=== PATIENT | female | born 1965 | race Caucasian/White ===

== ENCOUNTER 2016-10-17 17:17 | Emergency (ER) | payer OTHER, BC ==
[2016-10-17] MEDS ORDERED: TETANUS/DIPHTHERIA/PERTUSSIS 0.5 ML SYRINGE IM ONE ×2 (17:27→18:02)
--- NOTE | 2016-10-17 17:28 | ED Physician Documentation ---
PD HPI UPPER EXT INJURY - Stated complaint Stated Complaint: L THUMB LAC - Chief complaint Chief Complaint: Ext Problem - History obtained from History obtained from: Patient - History of Present Illness Location: Other (Not up-to-date on tetanus, got cut on the left thumb by a broken item at work just prior to arrival. No other injuries.) Review of Systems Constitutional: reports: Reviewed and negative Throat: reports: Reviewed and negative Cardiac: reports: Reviewed and negative PD PAST MEDICAL HISTORY - Present Medications Home Medications: Ambulatory Orders Medication Instructions Recorded Confirmed No Known Home Medications [No 12/25/15 12/25/15 Known Home Medications] - Allergies Allergies/Adverse Reactions: Allergies Allergy/AdvReac Type Severity Reaction Status Date / Time erythromycin base Allergy Rash Verified 12/25/15 17:46 prochlorperazine AdvReac Unknown Verified 12/25/15 17:46 [From Compazine] prochlorperazine edisylate * AdvReac Unknown Verified 12/25/15 17:46 [From Compazine] prochlorperazine maleate * AdvReac Unknown Verified 12/25/15 17:46 [From Compazine] - Social History Does the pt smoke?: No Does the pt have substance abuse?: Yes - Immunizations Immunizations are current?: No Immunizations: TDAP >10years/unknown PD ED PE NORMAL - Vitals Vital signs reviewed: Yes - General General: Alert and oriented X 3, No acute distress - Extremities Extremities: Other (There is a laceration on the palmar surface of the thumb, radial side at the level of the interphalangeal joints, she has normal strength in flexion and normal sensation and cap refill at the tip.) - Neuro Neuro: Alert and oriented X 3, Normal speech - Psych Psych: Normal mood, Normal affect Results - Vitals Vitals: Vital Signs - 24 hr 10/17/16 17:20 Temperature 36.3 C L Heart Rate 95 Respiratory 18 Rate Blood Pressure 143/101 H O2 Saturation 100 Oxygen O2 Source Room air Procedures - Laceration (location) Left thumb Length in cm: 1 Wound type: Linear Neurovascular status: Sensory intact, Motor intact, Vascular intact Tendon involvement: Tendon intact Anesthesia: Lidocaine 1%, With bicarb Wound Preparation: Betadine, Irrigated copiously NS Skin layer closure: Nylon, Interrupted, Size #-0 - enter number (5-0), Sutures - enter # (3) Other: Patient tolerated well, No complications, Neurovascular intact, Tetanus booster given Complexity: Simple Departure - Departure Disposition: 01 Home, Self Care Clinical Impression: Laceration of thumb Qualifiers: Encounter type: initial encounter Laterality: left Qualified Code(s): S61.012A - Laceration without foreign body of left thumb without damage to nail, initial encounter Condition: Good Record reviewed to determine appropriate education?: Yes Instructions: ED Laceration Hand Comments: Your blood pressure was elevated today on check into the emergency department. This does not mean that you have hypertension, it is a common phenomenon to come to the emergency department and have elevated blood pressure. I recommend that she see her primary care physician within the week to have it rechecked when you are feeling better. Come back for any signs of infection which would include: Redness, swelling, drainage, increased pain, or fevers. Follow-up with your physician in 10-14 days for suture removal.
[2016-10-17] MEDS ORDERED: BUFFERED LIDOCAINE 10 ML SYRINGE ONE (17:31)
[2016-10-17 18:40] VITALS: BP 132/81
== END 2016-10-17 18:41 | disposition home or self-care (01) ==
LOC: ED 17:17
DX: S61.012A Laceration without foreign body of left thumb without damage to nail, initial encounter (principal); R03.0 Elevated blood-pressure reading, without diagnosis of hypertension; Z23 Encounter for immunization; W45.8XXA Other foreign body or object entering through skin, initial encounter; Y99.0 Civilian activity done for income or pay
CPT/HCPCS: 1040M; 12001; 90471; 90715; 99283

== ENCOUNTER 2017-10-10 18:40 | Emergency (ER) | payer SELFPAY ==
--- NOTE | 2017-10-10 19:24 | ED Physician Documentation ---
PD HPI DYSPNEA - Stated complaint Stated Complaint: SOA - Chief complaint Chief Complaint: Resp - History obtained from History obtained from: Patient - History of Present Illness Timing - onset: How many days ago (5) Timing - onset during: Light activity Timing - duration: Days Timing - details: Gradual onset, Still present Inciting event(s): URI (had sore throat and cough for past 5 days. Cough worsening and has dyspnea/wheezing today.). No: Out of meds Improved by: Inhaler/neb Worsened by: Coughing Associated symptoms: Cough, Wheezing. No: Fever, Hemoptysis, Chest pain / discomfort Similar symptoms before: Diagnosis (asthma and URIs; no history of allergies environmental.) Recently seen: Not recently seen Review of Systems Constitutional: reports: Myalgias. denies: Fever, Chills Nose: reports: Congestion. denies: Rhinorrhea / runny nose Throat: reports: Sore throat Cardiac: denies: Chest pain / pressure Respiratory: reports: Dyspnea, Cough, Wheezing GI: denies: Abdominal Pain, Nausea, Vomiting, Diarrhea Skin: denies: Rash, Lesions Neurologic: reports: Generalized weakness. denies: Focal weakness, Numbness PD PAST MEDICAL HISTORY - Past Medical History Past Medical History: Yes Cardiovascular: None Respiratory: Asthma, Shortness of breath Neuro: None Endocrine/Autoimmune: None GI: Other [employer]: None : None HEENT: None Psych: Depression, Bipolar disorder Musculoskeletal: Osteoarthritis, Other Derm: None - Past Surgical History Past Surgical History: Yes HEENT: Tonsil/Adenoidectomy - Present Medications Home Medications: Ambulatory Orders Medication Instructions Recorded Confirmed Albuterol Sulf [Ventolin Hfa 2 - 3 puffs INH Q4HR PRN #1 inhaler 10/10/17 Inhaler] Benzonatate [Tessalon] 100 mg PO TID PRN #25 capsule 10/10/17 Dexamethasone [Decadron] 4 mg PO DAILY #5 tablet 10/10/17 guaiFENesin/CODEINE [Robitussin AC] 10 ml PO Q6H PRN #240 ml 10/10/17 - Allergies Allergies/Adverse Reactions: Allergies Allergy/AdvReac Type Severity Reaction Status Date / Time erythromycin base Allergy Rash Verified 10/10/17 18:54 prochlorperazine AdvReac Unknown Verified 10/10/17 18:54 [From Compazine] prochlorperazine edisylate * AdvReac Unknown Verified 12/25/15 17:46 [From Compazine] prochlorperazine maleate * AdvReac Unknown Verified 12/25/15 17:46 [From Compazine] - Social History Does the pt smoke?: No Smoking Status: Never smoker Does the pt drink ETOH?: No Does the pt have substance abuse?: Yes Substance Use and Type: Marijuana - Family History Family history: denies: CAD, Sudden , Venous thromboembolism - Immunizations Immunizations are current?: No Immunizations: TDAP current <10years - POLST Patient has POLST: No PD ED PE NORMAL - Vitals Vital signs reviewed: Yes - General General: Alert and oriented X 3, No acute distress, Well developed/nourished - HEENT HEENT: Moist mucous membranes, Pharynx benign - Neck Neck: Supple, no meningeal sign, No adenopathy - Cardiac Cardiac: RRR, No murmur - Respiratory Respiratory: No: Clear bilaterally (no coarse nor wet sounds. Has some cough and wheezing noted. ) - Derm Derm: Normal color, Warm and dry - Extremities Extremities: No tenderness to palpate, Normal ROM s pain, No edema, No calf tenderness / cord Results - Vitals Vitals: Oxygen O2 Source Room air PD MEDICAL DECISION MAKING - ED course Complexity details: re-evaluated patient, considered differential (sounds like URI with exac of asthma. ), d/w patient - Sepsis Event Vital Signs: Oxygen O2 Source Room air Departure - Departure Disposition: 01 Home, Self Care Clinical Impression: Upper respiratory infection Qualifiers: URI type: unspecified URI Qualified Code(s): J06.9 - Acute upper respiratory infection, unspecified Condition: Stable Record reviewed to determine appropriate education?: Yes Instructions: ED URI Viral W Wheezing Follow-Up: Flakito Doherty MD [Primary Care Provider] - Prescriptions: Albuterol Sulf [Ventolin Hfa Inhaler] 2 - 3 puffs INH Q4HR PRN #1 inhaler PRN Reason: Shortness Of Air/Wheezing Benzonatate [Tessalon] 100 mg PO TID PRN #25 capsule PRN Reason: Cough Dexamethasone [Decadron] 4 mg PO DAILY #5 tablet guaiFENesin/CODEINE [Robitussin AC] 10 ml PO Q6H PRN #240 ml PRN Reason: Cough Comments: Use albuterol inhaler 2-3 puffs 4 times a day and extra times if needed for wheezing and cough. Tessalon if needed for cough. Decadron steroid daily for 5 days to reduce the airway inflammation and therefore less symptoms and coughing. Cough medicine if needed. Drink lots of fluids. Recheck if not improving over the next several days to week. Forms: Activity restrictions Discharge Date/Time: 10/10/17 21:09
[2017-10-10] MEDS ORDERED: ALBUTEROL NEB 2.5 MG/3 ML INH STA (19:36)
[2017-10-10] MEDS ORDERED: CHERRY SYRUP 10 ML UDC PO ONE (19:39)
[2017-10-10] MEDS: BENZONATATE 100 MG CAPSULE PO STA ×2 (19:43→19:44)
[2017-10-10] MEDS: DEXAMETHASONE 10 MG/ML VIAL PO STA ×2 (19:43)
[2017-10-10 21:10] VITALS: BP 132/88
== END 2017-10-10 21:09 | disposition home or self-care (01) ==
LOC: ED 18:40
DX: J06.9 Acute upper respiratory infection, unspecified (principal)
CPT/HCPCS: 94640; 94664; 99283; A9270